=== PATIENT | female | born 1980 | race Caucasian/White ===

== ENCOUNTER 2020-03-02 17:15 | Observation (INO) | payer MEDICAID ==
[~2020-03-02] VITALS: Ht 149.9 cm; Wt 77.1 kg
[2020-03-02] MEDS ORDERED: MAG SULF 2000 MG/WATER PREMIX 100 ML IV ONE (19:00)
[2020-03-02] MEDS ORDERED: OSC500 PO (19:00)
[2020-03-02] MEDS ORDERED: PREN-380 PO (19:00)
[2020-03-02] MEDS ORDERED: MAG SULF 2000 MG/WATER PREMIX 50 ML IV ONE ×3 (19:00→21:55)
[2020-03-02 20:09] LABS: APPEARANCE,URINE HAZY (CLEAR); BILIRUBIN,URINE NEGATIVE (NEGATIVE); BLOOD, URINE NEGATIVE (NEGATIVE); COLOR,URINE YELLOW (YELLOW); LEUKOCYTE ESTERASE ,URINE NEGATIVE (NEGATIVE); NITRITE, URINE NEGATIVE (NEGATIVE); UGLUCOSE NEGATIVE (NEGATIVE)
[2020-03-02 20:12] LABS: ANION GAP 17.1 (8-16); CARBON DIOXIDE 21.3 mmol/L (21-32); CREATININE 0.5 mg/dL (0.6-1.3); POTASSIUM 3.4 mmol/L (3.5-5.1)
[2020-03-02 20:15] LABS: BASOPHILS % (AUTO) 0.2 % (0.0-2.0); EOSINOPHILS % (AUTO) 0.4 % (0.0-4.0); HEMATOCRIT 37.5 % (36-48); HEMOGLOBIN 12.4 g/dL (12.0-16.0); LYMPHOCYTES # (AUTO) 1.7 K/uL (2.5-16.5); LYMPHOCYTES % (AUTO) 26.2 % (20.5-51.1); MEAN CORPUSCULAR HEMOGLOBIN 29 pg (27-31); MEAN CORPUSCULAR HGB CONC 33 g/dL (33-37); MEAN CORPUSCULAR VOLUME 87.2 fL (80-94); MONOCYTES # (AUTO) 0.3 K/uL (0.8-1.0); MONOCYTES % (AUTO) 5.3 % (1.7-9.3); NEUTROPHILS # (AUTO) 4.3 K/uL (1.8-7.7); NEUTROPHILS % (AUTO) 67.9 % (42.2-75.2); PLATELET COUNT (AUTO) 224 K/uL (140-450); RED CELL DISTRIBUTION WIDTH 16.1 % (11.6-13.7); WHITE BLOOD COUNT (AUTO) 6.4 K/uL (4.8-10.8)
[2020-03-02 20:24] LABS: ALBUMIN 2.4 g/dL (3.4-5.0); TOTAL BILIRUBIN 0.3 mg/dL (0.0-1.0)
[2020-03-02] MEDS: LACTATED RINGERS 1,000 ML IV SCH (22:13)
[2020-03-02] MEDS: BETAMETH ACET/BETAMETH NA PH 30 MG/5 ML VIAL IM SCH (22:16)
[2020-03-02] MEDS: MAG SULF 20 GM/H2O PREMIX DRIP 500 ML IV SCH (22:24)
--- NOTE | 2020-03-03 07:41 | NUR ---
PATIENT HAS BEEN SCREENED AND CATEGORIZED LOW NUTRITION RISK. PATIENT WILL BE SEEN WITHIN 7 DAYS OF ADMISSION. 03/09/[address]
[2020-03-03 09:52] LABS: HEMATOCRIT 36.8 % (36-48); HEMOGLOBIN 12.1 g/dL (12.0-16.0); LYMPHOCYTES # (AUTO) 1.1 K/uL (2.5-16.5); LYMPHOCYTES % (AUTO) 16.4 % (20.5-51.1); MEAN CORPUSCULAR HEMOGLOBIN 29 pg (27-31); MEAN CORPUSCULAR HGB CONC 33 g/dL (33-37); MEAN CORPUSCULAR VOLUME 87.7 fL (80-94); MONOCYTES # (AUTO) 0.1 K/uL (0.8-1.0); MONOCYTES % (AUTO) 1.5 % (1.7-9.3); NEUTROPHILS # (AUTO) 5.3 K/uL (1.8-7.7); NEUTROPHILS % (AUTO) 82.1 % (42.2-75.2); PLATELET COUNT (AUTO) 216 K/uL (140-450); RED BLOOD CELL COUNT(AUTO) 4.19 MIL/uL (4.20-5.40); RED CELL DISTRIBUTION WIDTH 16.7 % (11.6-13.7); WHITE BLOOD COUNT (AUTO) 6.4 K/uL (4.8-10.8)
[2020-03-03 10:01] LABS: ANION GAP 14.2 (8-16); CARBON DIOXIDE 19.4 mmol/L (21-32); CREATININE 0.5 mg/dL (0.6-1.3); POTASSIUM 3.6 mmol/L (3.5-5.1)
[2020-03-03] MEDS: LACTATED RINGERS 1,000 ML IV SCH ×2 (10:14→23:28)
[2020-03-03] MEDS: NITROFURANTOIN 100 MG CAP PO SCH (16:29)
[2020-03-03 17:39] LABS: ANION GAP 13.6 (8-16); CARBON DIOXIDE 21.1 mmol/L (21-32); CREATININE 0.8 mg/dL (0.6-1.3); POTASSIUM 3.7 mmol/L (3.5-5.1)
[2020-03-03] MEDS: MAG SULF 20 GM/H2O PREMIX DRIP 500 ML IV SCH (18:33)
[2020-03-03] MEDS: CALCIUM CARBONATE 500 MG TAB PO SCH (19:18)
[2020-03-03] MEDS ORDERED: BETAMETH ACET/BETAMETH NA PH 30 MG/5 ML VIAL IM ONE (21:39)
[2020-03-03] MEDS: BETAMETH ACET/BETAMETH NA PH 30 MG/5 ML VIAL IM SCH (22:10)
[2020-03-04] MEDS: MAG SULF 20 GM/H2O PREMIX DRIP 500 ML IV SCH ×2 (04:04→13:36)
[2020-03-04] MEDS: NITROFURANTOIN 100 MG CAP PO SCH ×2 (08:08→17:35)
[2020-03-04] MEDS: CALCIUM CARBONATE 500 MG TAB PO SCH ×2 (08:08→17:35)
[2020-03-04] MEDS ORDERED: NIFEdipine 10 MG CAPLF PO SCH (21:00)
[2020-03-05] MEDS: NIFEdipine 10 MG CAPLF PO SCH ×3 (04:37→14:01)
[2020-03-05] MEDS: CALCIUM CARBONATE 500 MG TAB PO SCH (09:29)
[2020-03-05] MEDS: NITROFURANTOIN 100 MG CAP PO SCH (09:29)
[2020-03-05] MEDS ORDERED: NIFE10SG6 PO (15:22)
--- NOTE | 2020-03-08 10:04 | NUR ---
Late entry after chart review. 48 hour continuous Magnesium sulfate IV discontinued on 03/04/20 at 2217.
== END 2020-03-05 16:00 | disposition home or self-care (01) ==
LOC: MFCC 17:15 → MLD 18:52
PROVIDERS: ADMIT Obstetrics & Gynecology; ATTEND Obstetrics & Gynecology
DX: O30.043 Twin pregnancy, dichorionic/diamniotic, third trimester (principal); O62.9 Abnormality of forces of labor, unspecified; O09.523 Supervision of elderly multigravida, third trimester; Z3A.30 30 weeks gestation of pregnancy
CPT/HCPCS: 36415; 76810; 76817; 80048; 80053; 81003; 82731; 83735; 85025; 86886; 86900; 86901; 87086; 87653; 96365; 96366; 96372; G0378; J0702; J3475; J7120; Q0092

== ENCOUNTER 2020-04-21 18:14 | Observation (INO) | payer MEDICAID, SELFPAY ==
[~2020-04-21] VITALS: Ht 162.6 cm; Wt 80.7 kg
[~2020-04-21 18:14] MED LIST: NIFE10SG6 PO; OSC500 PO; PREN-380 PO
== END 2020-04-21 21:10 | disposition home or self-care (01) ==
LOC: MLD 18:14
PROVIDERS: ADMIT Obstetrics & Gynecology; ATTEND Obstetrics & Gynecology
DX: Z03.818 Encounter for observation for suspected exposure to other biological agents ruled out (principal); O30.043 Twin pregnancy, dichorionic/diamniotic, third trimester; O32.1XX0 Maternal care for breech presentation, not applicable or unspecified; O09.523 Supervision of elderly multigravida, third trimester; Z3A.38 38 weeks gestation of pregnancy
CPT/HCPCS: 76810; G0378; Q0092; U0003; 59025; 81000

== ENCOUNTER 2020-04-23 15:20 | Inpatient (IN) | payer MEDICAID, SELFPAY ==
[~2020-04-23] VITALS: Ht 157.5 cm; Wt 80.7 kg
[2020-04-23] MEDS ORDERED: PNV11TAB3 PO (15:41)
[2020-04-23] MEDS ORDERED: LACTATED RINGERS 1,000 ML IV SCH (15:41)
[2020-04-23 16:37] LABS: BASOPHILS % (AUTO) 0.4 % (0.0-2.0); EOSINOPHILS % (AUTO) 0.2 % (0.0-4.0); HEMATOCRIT 37.7 % (36-48); HEMOGLOBIN 12.5 g/dL (12.0-16.0); LYMPHOCYTES # (AUTO) 1.8 K/uL (2.5-16.5); LYMPHOCYTES % (AUTO) 31.4 % (20.5-51.1); MEAN CORPUSCULAR HEMOGLOBIN 30 pg (27-31); MEAN CORPUSCULAR HGB CONC 33 g/dL (33-37); MEAN CORPUSCULAR VOLUME 90.6 fL (80-94); MONOCYTES # (AUTO) 0.3 K/uL (0.8-1.0); MONOCYTES % (AUTO) 4.8 % (1.7-9.3); NEUTROPHILS # (AUTO) 3.6 K/uL (1.8-7.7); NEUTROPHILS % (AUTO) 63.2 % (42.2-75.2); PLATELET COUNT (AUTO) 149 K/uL (140-450); RED BLOOD CELL COUNT(AUTO) 4.16 MIL/uL (4.20-5.40); RED CELL DISTRIBUTION WIDTH 17.9 % (11.6-13.7); WHITE BLOOD COUNT (AUTO) 5.8 K/uL (4.8-10.8)
[2020-04-23 16:41] LABS: APPEARANCE,URINE CLEAR (CLEAR); BILIRUBIN,URINE NEGATIVE (NEGATIVE); BLOOD, URINE TRACE-I (NEGATIVE); LEUKOCYTE ESTERASE ,URINE NEGATIVE (NEGATIVE); NITRITE, URINE NEGATIVE (NEGATIVE); UGLUCOSE NEGATIVE (NEGATIVE)
[2020-04-23 16:48] LABS: ALBUMIN 2.3 g/dL (3.4-5.0); CARBON DIOXIDE 18.8 mmol/L (21-32); CREATININE 0.7 mg/dL (0.6-1.3); POTASSIUM 3.8 mmol/L (3.5-5.1); TOTAL BILIRUBIN 0.3 mg/dL (0.0-1.0)
[2020-04-23] MEDS ORDERED: ONDANSETRON 4 MG/2 ML VIAL ONE (17:00)
[2020-04-23] MEDS ORDERED: MORPHINE PRES FREE 10 MG/10 ML AMP IV ONE ×2 (17:00→17:03)
[2020-04-23] MEDS ORDERED: MIDAZOLAM 2 MG/2 ML VIAL ONE (17:03)
[2020-04-23 17:08] LABS: COLOR,URINE STRAW (YELLOW); RBC,URINE 0-5 /HPF (0-5); WBC,URINE 0-5 /HPF (0-5)
[2020-04-23 17:25] VITALS: BP 129/68
[2020-04-23] MEDS ORDERED: OXYTOCIN 20 UNITS in LACTATED RINGERS 1,000 ML IV SCH (18:21)
[2020-04-23] MEDS ORDERED: diphenhydrAMINE 50 MG/ML VIAL IVP PRN ×2 (18:25)
[2020-04-23] MEDS ORDERED: NALOXONE 0.4 MG/ML VIAL IVP PRN ×3 (18:25)
[2020-04-23] MEDS ORDERED: ONDANSETRON 4 MG/2 ML VIAL IVP PRN ×2 (18:25)
[2020-04-23] MEDS ORDERED: MEPERIDINE 25 MG/ML SYR IVP PRN (18:25)
[2020-04-23] MEDS ORDERED: HYDROmorphone 1 MG/ML AMP IVP PRN (18:25)
[2020-04-23] MEDS ORDERED: NALBUPHINE 10 MG/ML AMP IVP PRN (18:25)
[2020-04-23] MEDS ORDERED: CARBOPROST 250 MCG/ML AMP IM PRN (18:45)
[2020-04-23] MEDS ORDERED: PROMETHAZINE 25 MG/ML VIAL IVP PRN (18:45)
[2020-04-23] MEDS ORDERED: OXYTOCIN 20 UNITS/LR PREMIX 1,000 ML IV ONE (19:05)
[2020-04-23] MEDS ORDERED: MEASLES, MUMPS, AND RUBELLA 1 VIAL SQVAC PRN (21:20)
[2020-04-23] MEDS ORDERED: METHYLERGONOVINE 0.2 MG/ML AMP IM PRN (21:20)
[2020-04-24] MEDS: KETOROLAC 30 MG/ML VIAL IM/IVP SCH ×4 (01:15→17:40)
[2020-04-24] MEDS ORDERED: OXYTOCIN 20 UNITS/LR PREMIX 1,000 ML IV ONE (03:39)
[2020-04-24] MEDS: OXYTOCIN 10 UNITS in LACTATED RINGERS 1,000 ML IV SCH ×2 (04:09→12:00)
[2020-04-24 06:16] LABS: BASOPHILS % (AUTO) 0.1 % (0.0-2.0); EOSINOPHILS % (AUTO) 0.1 % (0.0-4.0); HEMATOCRIT 29.6 % (36-48); HEMOGLOBIN 9.9 g/dL (12.0-16.0); LYMPHOCYTES # (AUTO) 2.3 K/uL (2.5-16.5); MEAN CORPUSCULAR HEMOGLOBIN 31 pg (27-31); MEAN CORPUSCULAR HGB CONC 33 g/dL (33-37); MEAN CORPUSCULAR VOLUME 91.6 fL (80-94); MONOCYTES # (AUTO) 0.5 K/uL (0.8-1.0); MONOCYTES % (AUTO) 4.4 % (1.7-9.3); NEUTROPHILS # (AUTO) 8.1 K/uL (1.8-7.7); NEUTROPHILS % (AUTO) 74.4 % (42.2-75.2); PLATELET COUNT (AUTO) 126 K/uL (140-450); RED BLOOD CELL COUNT(AUTO) 3.23 MIL/uL (4.20-5.40); RED CELL DISTRIBUTION WIDTH 17.7 % (11.6-13.7); WHITE BLOOD COUNT (AUTO) 10.9 K/uL (4.8-10.8)
--- NOTE | 2020-04-24 06:58 | NUR ---
PATIENT HAS BEEN SCREENED AND CATEGORIZED LOW NUTRITION RISK. PATIENT WILL BE SEEN WITHIN 7 DAYS OF ADMISSION. 04/30/20 MIMI NAYLOR MBA, RD
[2020-04-24] MEDS: bisacodyL 10 MG SUPP RC SCH (09:00)
[2020-04-24] MEDS: oxyCODONE/APAP 5/325 MG 1 TAB TAB PO PRN (16:37)
[2020-04-25] MEDS: oxyCODONE/APAP 5/325 MG 1 TAB TAB PO PRN ×3 (03:57→20:46)
[2020-04-25] MEDS ORDERED: CAMERA MC ONE (06:45)
[2020-04-25] MEDS: bisacodyL 10 MG SUPP RC SCH (10:03)
[2020-04-25 11:00] LABS: HEMATOCRIT 28.4 % (36-48); HEMOGLOBIN 9.5 g/dL (12.0-16.0)
[2020-04-25] MEDS: MISOPROSTOL 100 MCG TAB PO SCH ×2 (14:31→20:43)
[2020-04-26] MEDS: MISOPROSTOL 100 MCG TAB PO SCH (02:51)
[2020-04-26] MEDS: bisacodyL 10 MG SUPP RC SCH (09:00)
== END 2020-04-26 12:45 | disposition home or self-care (01) | DRG 540 ==
LOC: MLD 15:20 → MFCC 20:53
PROVIDERS: ADMIT Obstetrics & Gynecology; ATTEND Obstetrics & Gynecology
PROC: 3E0134Z Introduction of Serum, Toxoid and Vaccine into Subcutaneous Tissue, Percutaneous Approach (ICD-10-PCS; 2020-04-23)
PROC: 10D00Z1 Extraction of Products of Conception, Low, Open Approach (ICD-10-PCS; principal; 2020-04-23 17:00)
DX: O69.81X1 Labor and delivery complicated by cord around neck, without compression, fetus 1 (principal); O30.043 Twin pregnancy, dichorionic/diamniotic, third trimester; O32.1XX1 Maternal care for breech presentation, fetus 1; D62 Acute posthemorrhagic anemia; Z23 Encounter for immunization; Z3A.37 37 weeks gestation of pregnancy; Z37.2 Twins, both liveborn
CPT/HCPCS: 36415; 80053; 81001; 85018; 85025; 86592; 86886; 86900; 86901; J0690; J1885; J2250; J2270; J2405; J2590; J7060; J7120